=== PATIENT | female | born 1970 | race Caucasian/White ===

== ENCOUNTER 2021-02-22 10:36 | Outpatient (CLI) | payer BC | END 2021-02-22 10:37 | disposition home or self-care (01) | LOC: SCSMRI 10:36 | PROVIDERS: ATTEND Orthopaedic Surgery | DX: M54.2 Cervicalgia (principal); M47.812 Spondylosis without myelopathy or radiculopathy, cervical region | CPT/HCPCS: 72141 ==

== ENCOUNTER 2021-06-07 13:01 | Outpatient (CLI) | payer BC ==
[2021-06-07 14:16] LABS: #Basophils 0.1 10x3/uL (0.0-0.2); #Eosinphils 0.2 10x3/uL (0.0-0.5); #Monocytes 1.3 10x3/uL (0.0-1.1); #Neutrophils 8.1 10x3/uL (1.5-8.4); %Basophils 0.5 % (0.0-2.0); %Eosinophils 1.7 % (0.0-6.0); %Neutrophils 62.3 % (40.0-75.0); Hemoglobin 13.1 g/dL (12.0-15.5); Mean Corpuscular Hemoglobin 26.3 pg (27.0-33.0); Mean Corpuscular Volume 84.9 fl (81.6-98.3); Mean Platelet Volume 10.9 fl (7.4-10.4); Platelet Count 309 10x3/uL (150-450); RBC Distribution Width 15.3 % (11.5-14.5); Red Blood Cell (RBC) Count 4.98 10x6/uL (3.90-5.03)
[2021-06-08 08:05] LABS: SARS-CoV-2 PCR by NAA Not Detected (NotDetected)
== END 2021-06-07 13:02 | disposition home or self-care (01) ==
LOC: LABBT 13:01
PROVIDERS: ATTEND Orthopaedic Surgery
DX: Z01.818 Encounter for other preprocedural examination (principal); G56.02 Carpal tunnel syndrome, left upper limb; Z20.822 Contact with and (suspected) exposure to COVID-19
CPT/HCPCS: 71046; 85025; 93005; 93010; U0003; U0005

== ENCOUNTER 2021-06-10 07:51 | Day surgery (SDC) | payer BC ==
[2021-06-08 14:34] VITALS: BMI 41.3
[2021-06-10] MEDS ORDERED: Lidocaine 1% (PF) 30 ML VIAL ONE (09:53)
[2021-06-10] MEDS ORDERED: Midazolam HCl 2 mg/2 ml Vial ONE (10:05)
[2021-06-10] MEDS ORDERED: Propofol 500 MG/50 ML VIAL ONE (10:05)
[2021-06-10] MEDS ORDERED: Fentanyl 100 MCG/2 ML VIAL ONE (10:05)
== END 2021-06-10 12:07 | disposition home or self-care (01) ==
LOC: SDC 07:51
PROVIDERS: ATTEND Orthopaedic Surgery
PROC: 01N50ZZ Release Median Nerve, Open Approach (ICD-10-PCS; principal; 2021-06-10)
DX: G56.03 Carpal tunnel syndrome, bilateral upper limbs (principal); M67.432 Ganglion, left wrist; M54.2 Cervicalgia; I10 Essential (primary) hypertension; E11.9 Type 2 diabetes mellitus without complications; E78.00 Pure hypercholesterolemia, unspecified; K21.9 Gastro-esophageal reflux disease without esophagitis; E03.9 Hypothyroidism, unspecified; E66.9 Obesity, unspecified; Z68.41 Body mass index [BMI] 40.0-44.9, adult; Z90.721 Acquired absence of ovaries, unilateral; Z98.890 Other specified postprocedural states; Z90.49 Acquired absence of other specified parts of digestive tract; Z96.22 Myringotomy tube(s) status; Z87.891 Personal history of nicotine dependence; Z86.16 Personal history of COVID-19; Z79.82 Long term (current) use of aspirin; Z79.84 Long term (current) use of oral hypoglycemic drugs; Z79.899 Other long term (current) drug therapy
CPT/HCPCS: 36416; J0690; J2001; J2250; J2704; J3010